=== PATIENT | male | born 1940 | race Caucasian/White ===

== ENCOUNTER 2016-07-24 02:09 | Inpatient (IN) | payer OTHER ==
[~2016-07-24] VITALS: Ht 167.6 cm; Wt 113.4 kg
[2016-07-24] VITALS (7 sets, daily range): BP systolic 117–151; BP diastolic 58–85
--- NOTE | ~2016-07-24 | EEG ---
[facility] [place] [address] ELECTROENCEPHALOGRAM Name: ANDERS RICHARDS Room #: 203-P [facility] IN M.R.#: [id number] Admission: 07/25/16 Attend Phys: Husam Gupta Discharge: 07/25/16 Date of : 39 Report #: [id number] THIS REPORT FOR: //name// CC: Carol Nuñez DATE OF SERVICE: 07/24/2016 The patient is a 75-year-old male with recurrent syncopal episodes. The patient has severe obstructive sleep apnea and restless legs syndrome. He only wears his BiPAP machine 3 hours at night. The patient has had episodes witnessed at the side of the bed where he falls asleep. DESCRIPTION: The awake record consists of symmetric low amplitude 8 cycles per second posterior dominant rhythm, which attenuates with eye opening. No focal abnormalities or epileptiform discharges are noted. EMG artifact is noted on the recording. No focal abnormalities or epileptiform discharges are noted. IMPRESSION: This is an abnormal adult awake record. No focal abnormalities or epileptiform discharges are noted. <ELECTRONICALLY SIGNED> By: Criss Palacios DO 07/27/16 1227 1751 [id number] Criss Palacios DO /nt
--- NOTE | ~2016-07-24 | EKG ---
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 : 1940 Requested By: Ramon Waldrop Order Number: [id number] MD: Armen Bullard Measurements Intervals [place] Rate: 95 P: 19 FL: 163 QRS: 76 QRSD: 140 T: 7 QT: 383 QTc: 482 Interpretive Statements Sinus rhythm Right bundle branch block Compared to ECG 07/18/2016 10:24:51 Atrial premature complex(es) no longer present Electronically Signed On 07-24-2016 11:54:49 CDT by Armen Bullard [email or web address] <ELECTRONICALLY SIGNED> By: Armen Bullard MD, [facility] 07/24/16 1154 0305 0305 Armen Bullard MD, [facility] /EPI
--- NOTE | ~2016-07-24 | H ---
[facility] [place] [address] [address] [place] [address] HISTORY AND PHYSICAL Name: ANDERS RICHARDS Room #: 203-P [facility] IN M.R.#: [id number] Admission: 07/25/16 Attend Phys: Husam Nuñez Discharge: 07/25/16 Date of : 39 Report #: [id number] THIS REPORT FOR: //name// CC: Carol Nuñez DATE OF SERVICE: 07/24/2016 ATTENDING PHYSICIAN: Husam Nuñez M.D. PRIMARY CARE PHYSICIAN: Carol Stern M.D. CHIEF COMPLAINT: Frequent falls and sleeping episodes. HISTORY OF PRESENT ILLNESS: The patient is a 75-year-old male who has been experiencing frequent falls in the last 10 days. He says they are occurring because he is falling asleep. They are occurring when he is standing or walking or driving or sitting. He has no warning before they happen. Multiple times, he has woken up on the floor, and he knows that he has hit his head and has caused multiple bruises because of the falls. He has been having difficulty sleeping over this time for him as well. Normally, he wears BiPAP for sleep apnea, but lately he has been taking it off frequently, and has not been having very restless sleep. He does not take anything to help him sleep either. He does not necessarily feel like he is tired throughout the day, but his says he will fall asleep in the middle of talking. It does not ever take much to arouse him, and he goes right back to talking. He does not have any history of seizures. He did have some medication adjustment recently with the restless leg medication, and he was switched to Neupro patch, but he says these sleeping episodes were occurring shortly before starting this new medication. He denies any associated chest pain or palpitations or dizziness. He denies any significant injuries from his falls. He has always been able to get back up and ambulate if he woke up on the ground. His has not actually witnessed any of his falls, but has seen many episodes when he is sitting and just falls asleep. He is doing this throughout this current assessment as well. PAST MEDICAL HISTORY: Obstructive sleep apnea, coronary artery disease, hypertension, hyperlipidemia, restless leg syndrome, diabetes, depression, GERD and anemia. PAST SURGICAL HISTORY: CABG x 5 vessels, uvulectomy, tonsillectomy, coronary angioplasty, left total hip replacement and bilateral cataracts. ALLERGIES: None. HOME MEDICATIONS: Libia 180 mg daily, clindamycin 300 mg q.6 hours, iron 65 mg b.i.d., Crestor 10 mg daily, fish oil 1000 mg daily, Gordo 5/40 [place] [address] HISTORY AND PHYSICAL Name: ANDERS RICHARDS PJ Room #: 203-P [facility] IN M.R.#: [id number] Admission: 07/25/16 Attend Phys: Husam Nuñez Discharge: 07/25/16 Date of : 39 Report #: [id number] and aspirin 81 mg daily, Mobic 7.5 mg daily, Effexor 150 mg daily, Neupro 1 patch daily, omeprazole 20 mg daily, prednisone 4 mg daily, metformin 1000 mg b.i.d., Januvia 100 mg daily, Detrol 2 mg daily, vitamin B12 daily, vitamin C daily, vitamin E daily and a multivitamin daily. SOCIAL HISTORY: The patient denies any tobacco use. He does drink alcohol casually but denies any daily use. He lives at home with his . He is able to ambulate with a walker. FAMILY HISTORY: His son does have epilepsy. REVIEW OF SYSTEMS: The patient has had some sores develop on his bilateral lower extremities and on his forehead. He was told they were Staph and he has been on, he says 2 different medications for it, but the only antibiotic I can see is clindamycin. He is also not aware why he is on prednisone, and he is not sure if he has been taking it or if this is a medication list error, as he says his sets up all his home medications, so he really does not know what he takes. He is scheduled to have a right hip replacement on August 02 in a few weeks. He says he has been to multiple physicians recently to have preop evaluations, but he is not sure exactly what has been done. All other 12-point review of systems was reviewed with the patient, otherwise negative unless stated in the HPI. PHYSICAL EXAMINATION: GENERAL: The patient is a sleepy male in no acute distress. VITAL SIGNS: Temperature is 36.4, heart rate 85, respirations 17, blood pressure is 144/71 and oxygen 98% on room air. HEENT: PERRLA. Sclerae are somewhat reddened. Oral mucosa is pink and moist. NECK: Supple, no JVD noted. CARDIOVASCULAR: Normal S1 and S2. No murmurs, rubs or gallops. RESPIRATORY: Breath sounds are clear bilaterally. He is diminished in both bases. Breathing is nonlabored. ABDOMEN: Obese, soft, nontender and nondistended with positive bowel sounds. VASCULAR: Bilateral lower extremity edema 1+. Pedal pulses are 2+. NEUROLOGIC: The patient is alert. He is able to tell me it is July and 2016, and he is in the hospital. He knew it was Monday. His speech is clear. He does doze off frequently during the assessment but arouses very easily shortly thereafter. It does appear that when this happens that he is sleeping. There was no shaking or seizure activity noted with it, and afterwards he remained fully alert. This happened at least 10 times during the assessment. SKIN: He does have multiple sores on bilateral shins as well as on the top of his head that are scabbed over. There is really no surrounding erythema. There are also multiple scattered bruises throughout. LABORATORY AND DIAGNOSTIC DATA: WBC is 7.2, hemoglobin 11.2 and platelets 272. INR 1.1. Sodium 138, potassium 4.8, BUN 22, creatinine 1.0 and glucose 146. [address] [address] HISTORY AND PHYSICAL Name: ANDERS RICHARDS [facility] Room #: [facility] IN .R.#: [id number] Admission: 07/25/16 Attend Phys: Husam Nuñez Discharge: 07/25/16 Date of : 39 Report #: [id number] of the head shows no acute intracranial process. There is a small air fluid level dependent to left maxillary sinus, which may represent subtle acute sinusitis. Hip x-ray shows no acute osseous abnormality. There is severe right hip osteoarthritis, and chest x-ray shows no acute cardiopulmonary process. ASSESSMENT AND PLAN: 1. Sudden sleep episodes versus syncope. The patient will need further neurologic and cardiac evaluation. It does not appear that he is having any arrhythmias during these witnessed events so far since arrival. We will continue to monitor on telemetry. They may be neurologic associated with narcolepsy; although, he has never had any prior diagnosis of this, and this would be rather late onset to have this occur. I am not sure if he is severely sleep deprived as well due to his sleep apnea and noncompliance with CPAP. He may need some medications for sleep Tonight. We will have Neurology evaluate for possible partial seizures. We will check an EEG. CT of the head is negative. Consult Neurology. 2. Multiple falls. See #1. X-rays were negative. 3. Obstructive sleep apnea. His will be bringing in his CPAP from home to continue. 4. Coronary artery disease. The patient is denying any chest pain. Troponins negative. EKG showed no ischemic changes. 5. Diabetes type 2. Blood sugar is stable. Continue home medications and add sliding scale insulin. 6. Severe restless legs syndrome. Neupro, which is his new medication may be contributing to the sleeping episodes and should be discontinued. 7. Hypertension. Blood pressure is stable, continue home meds. 8. Recent staph skin infection. Continue with clindamycin as at home. 9. Deep venous thrombosis prophylaxis, place sequential compression devices. We will continue to follow the patient closely throughout the hospitalization and make changes based on clinical status. <ELECTRONICALLY SIGNED> By: JORGE Bowman 07/26/16 0608 0734 0959 JORGE Bowman /nt
[~2016-07-24 02:09] MED LIST: ALLEGRA ALLERG180 MG PO; AMOXICILLIN 50500 M1 PO; APAP/CODEINE ELI5 M1 OR; ASA5UEC PO; AZOR 10-20 MG1 EACH PO; AZOR 5-40 MG T1 EACH PO; CELEBREX50 MG; CENTRUM SILVER1 EAC2 PO; CRESTOR10 MG PO; CYMBALTA20 MG; DETROL2 MG PO; FISH OIL 1,001000 M2 PO; GLUCOPHAGE500 MG PO; GLUCOSAMINE CH1 EAC2 PO; IRON325 PO; JANUVIA100 MG PO; MIRAPEX1 MG PO; MOBIC7.5 MG PO; OMEPRAZOLE 20 M20 M1 PO; VENLAFAXIN75 MG/1 T2 PO; VITAMIN B-12500 MCG PO; VITAMIN C1000 M1 PO; VITAMIN E400 UNIT PO; VYTORIN 10-101 EACH PO
[2016-07-24] MEDS ORDERED: CENTRUM SILVER1 EAC4 PO (02:55)
[2016-07-24] MEDS ORDERED: ALLEGRA ALLERG180 MG PO (02:55)
[2016-07-24] MEDS ORDERED: VITAMIN B-12500 MCG PO (02:56)
[2016-07-24 03:14] LABS: HEMATOCRIT 33.6 % (42.0-52.0); HEMOGLOBIN 11.2 gm/dL (14.0-18.0); MCH 29.4 pg (26.0-34.0); MCHC 33.3 g/dL (28.0-37.0); MCV 88.3 fL (80.0-100.0); RBC 3.81 mil/uL (4.50-6.00); RDW 17.6 % (10.5-14.5); WBC 7.2 thou/uL (4.0-11.0)
[2016-07-24 03:27] LABS: APTT 26.6 Seconds (24.5-32.8); INR 1.1; PROTIME 11.6 Seconds (9.3-11.4)
[2016-07-24 03:34] LABS: ANION GAP 9 mmol/L (7-16); BUN 22 mg/dL (7-18); CALCIUM 9.1 mg/dL (8.5-10.1); CHLORIDE 102 mmol/L (98-107); CO2 27 mmol/L (21-32); GLUCOSE 146 mg/dL (74-106); POTASSIUM 4.8 mmol/L (3.5-5.1); SODIUM 138 mmol/L (136-145); TROPONIN-I < 0.04 ng/mL (<0.04-0.07)
[2016-07-24] MEDS ORDERED: FISH OIL 1,001000 M2 PO (04:07)
[2016-07-24] MEDS ORDERED: VITAMIN C1000 M1 PO (04:09)
[2016-07-24] MEDS ORDERED: CRESTOR10 MG PO (04:09)
[2016-07-24] MEDS ORDERED: JANUVIA100 MG PO (04:10)
[2016-07-24] MEDS ORDERED: AZOR 5-40 MG T1 EACH PO (04:10)
[2016-07-24] MEDS ORDERED: MEDROL4 MG PO (04:11)
[2016-07-24] MEDS ORDERED: CLEOCIN HCL150 MG PO (04:11)
[2016-07-24] MEDS ORDERED: NEUPRO1 EAC1 TD (04:12)
[2016-07-24 10:01] LABS: TSH 1.498 uIU/mL (0.358-3.740)
[2016-07-24 13:18] LABS: ABG SAMPLE TYPE ARTERIAL; BE(vivo) 0.7 mmol/L (-2 to +3); HCO3 25.4 mmol/L (22.0-26.0); LACTATE 1.58 mmol/L (0.5-2.0); O2(CT) 15.6 mL/dL (15.0-23.0); O2Hb 92.8 % (92.0-98.0); PCO2 41.3 mmHg (35.0-45.0); PO2 72.8 mmHg (80.0-100.0); pH 7.407 (7.360-7.450); sO2 94.8 % (92.0-98.0); tCO2 26.7 mmol/L (24.0-30.0)
[2016-07-24 13:19] LABS: STICK SITE R.RADIAL
[2016-07-25] VITALS (7 sets, daily range): BP systolic 120–150; BP diastolic 55–84
[2016-07-25] MEDS ORDERED: REQUIP 0.25 M0.25 MG PO (11:49)
== END 2016-07-25 15:01 | disposition home health service (06) | DRG 312 ==
LOC: ER 02:09 → 2N 04:21 → EROBS 04:21 → 2N 05:25
PROVIDERS: Emergency Medicine; Hospitalist
DX: R55 Syncope and collapse (principal); T50.995A Adverse effect of other drugs, medicaments and biological substances, initial encounter; E78.5 Hyperlipidemia, unspecified; G25.81 Restless legs syndrome; E11.9 Type 2 diabetes mellitus without complications; K21.9 Gastro-esophageal reflux disease without esophagitis; F32.9 Major depressive disorder, single episode, unspecified; Z96.649 Presence of unspecified artificial hip joint; I11.0 Hypertensive heart disease with heart failure; I50.9 Heart failure, unspecified; G47.33 Obstructive sleep apnea (adult) (pediatric); I25.10 Atherosclerotic heart disease of native coronary artery without angina pectoris; Z79.82 Long term (current) use of aspirin; Z95.5 Presence of coronary angioplasty implant and graft; Z95.1 Presence of aortocoronary bypass graft; Z98.42 Cataract extraction status, left eye; Z98.41 Cataract extraction status, right eye; Z79.899 Other long term (current) drug therapy; Z91.19 Patient's noncompliance with other medical treatment and regimen; Z82.0 Family history of epilepsy and other diseases of the nervous system
CPT/HCPCS: 10081

== ENCOUNTER 2016-07-26 11:48 | Inpatient (IN) | payer OTHER ==
[~2016-07-26] VITALS: Ht 167.6 cm; Wt 106.1 kg
--- NOTE | ~2016-07-26 | EEG ---
[facility] [place] [address] ELECTROENCEPHALOGRAM Name: ANDERS RICHARDS Room #: 435-P [facility] IN M.R.#: [id number] Admission: 07/26/16 Attend Phys: Carlos Buckley MD Discharge: 07/29/16 Date of : 39 Report #: [id number] THIS REPORT FOR: //name// CC: Carol Buckley DATE OF SERVICE: 07/27/2016 This patient is being evaluated for altered mental status. The EEG was done by placing the electrodes by standard 10-20 system of electrode placement. Both referential and sequential montages were used for recording. Background activity in this patient's EEG is up to about 9 Hz and 15-20 microvolts. It is intermixed with theta range slowing on both sides. The patient went to sleep that is associated with bilateral slowing, vertex sharp waves and sleep spindles. Photic stimulation is unremarkable. Throughout the record, no active epileptiform activity was noticed. IMPRESSION: This patient's EEG demonstrates some intermixed theta range slowing on both sides. That is a nonspecific abnormality, which can occur with encephalopathy, effect of psychotropic medication, dementia, etc. Clinical correlation is recommended. Thank you very much for this referral. <ELECTRONICALLY SIGNED> By: Jeff Snider MD 07/31/16 0731 1729 1845 Jeff Snider MD /nt
--- NOTE | ~2016-07-26 | EKG ---
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[place] : 1940 Requested By: Sheila Rendon Order Number: [id number] MD: Armen Bullard Measurements Intervals [place] Rate: 85 P: 47 [place]: 168 QRS: 84 QRSD: 149 T: 2 QT: 411 QTc: 489 Interpretive Statements Sinus rhythm Incomplete Right bundle branch block Baseline wander in lead(s) V1 Compared to ECG 07/24/2016 03:05:39 No significant changes Electronically Signed On 07-28-2016 7:33:26 CDT by Armen Bullard [email or web address] <ELECTRONICALLY SIGNED> By: Armen Bullard MD, [facility] 07/28/16 0733 1204 1204 Armen Bullard MD, [facility] /EPI
--- NOTE | ~2016-07-26 | HC ---
[facility] [place] [address] CONSULTATION Name: ANDERS RICHARDS Room #: 435-P ADM IN M.R.#: [id number] Admission: 07/26/16 Attend Phys: Carlos Buckley MD Discharge: Date of : 39 Report #: [id number] THIS REPORT FOR: //name// CC: Carol Buckley HISTORY OF PRESENT ILLNESS: The patient is a 75-year-old white male who was recently admitted to [facility] having problems with frequent falls and falling asleep with standing, walking and talking to his , etc. He was noted to have both backwards falls as well as occasional forward falls. He has a history of obstructive sleep apnea. He was evaluated by neurology, diagnosed with restless legs syndrome, resumed on BiPAP, Neupro stopped, ropinirole increased. He was doing better and was discharged to home. He unfortunately was readmitted the next day. He had issues with falling asleep while standing up and had fallen 4 more times post-discharge. He was noted to have lethargy with frequent falls, restless legs syndrome, noncompliance with BiPAP. He has rhabdomyolysis and his statin was held due to the rhabdomyolysis. He has seen a sleep disorder specialist already in the past and will need to follow up with that doctor in the future. We are seeing him in rehabilitation medicine consultation. PAST MEDICAL HISTORY: Includes coronary artery bypass grafting, obstructive sleep apnea, he is to have a right total hip replacement on August 02, he has had cardiac catheterization times 4 with 2 angioplasties, history of hypertension, hyperlipidemia, left total hip replacement in 2005, restless legs syndrome, itg-fiofhzu-bqdxralda diabetes mellitus, EGD and colonoscopy, depression, controlled; and GERD. PAST SURGICAL HISTORY: As noted above. HABITS: No history of tobacco use. Alcohol on occasion. SOCIAL HISTORY: Lives in a house with his , 2 steps in. Used a walker, premorbid community ambulator with a walker. REVIEW OF SYSTEMS: No current complaints of chest pain, shortness of breath, or abdominal discomfort. He notes that he will use the BiPAP, but only for about an hour and half. He is trying gradually work up to using it for at least 6 hours a day. No focal extremity pain complaints. Does note overall generalized weakness. PHYSICAL EXAMINATION: GENERAL: A 75-year-old overweight white male, in no obvious distress. The patient is alert, pleasant, and oriented. VITAL SIGNS: Last recorded temperature 97.7, pulse 81, respirations 20, and blood pressure 150/66. HEENT: Appeared to be benign. [address] [address] CONSULTATION Name: ANDERS RICHARDS PJ Room #: [address] [place] [address] IN M.R.#: [id number] Admission: 07/26/16 Attend Phys: Carlos Buckley MD Discharge: Date of : 39 Report #: [id number] NEUROLOGIC: Cranial nerves grossly intact. Facies are symmetric. EXTREMITIES: Functional range of motion of both upper extremities with strength a grade 4- to 3+/5. DTRs are trace to 1. Lower extremities, he does have some distal edema 1-2+. No focal calf swelling. He has some thickening of the skin of the lower extremities and the edema, feels somewhat firm to touch and is not easily pitting. Tone otherwise appeared intact. He does have some excoriations over his childress anteriorly. He is standby assistance sit to stand. Gait was 6 steps contact guard assistance. ASSESSMENT: A 75-year-old white male with the following problem list: 1. Lethargy with frequent falls. 2. Rhabdomyolysis, holding statin. 3. Restless legs syndrome. 4. BiPAP noncompliance. 5. Significant right hip degenerative arthritis with plans for an upcoming total hip replacement. 6. Exogenous obesity. 7. Prior history of coronary artery bypass grafting. 8. History of frequent falls. 9. Diabetes mellitus. 10. Lower extremity edema. PLAN: We are assessing the patient regarding his rehabilitation needs. We will follow along with you. By: 1334 1821 Maciej Thakur MD /nt
[~2016-07-26 11:48] MED LIST changes: +CENTRUM SILVER1 EAC4 PO; +CLEOCIN HCL150 MG PO; +MEDROL4 MG PO; +NEUPRO1 EAC1 TD; +REQUIP 0.25 M0.25 MG PO
[2016-07-26 11:57] VITALS: BP 141/62
[2016-07-26 12:59] LABS: ABSOLUTE NEUTROPHILS 4.7 thou/uL (1.4-8.2); BASOPHILS 0.5 % (0.0-2.0); EOSINOPHILS 1.3 % (0.0-3.0); HEMATOCRIT 32.1 % (42.0-52.0); HEMOGLOBIN 10.8 gm/dL (14.0-18.0); LYMPHOCYTES 16.2 % (24.0-44.0); MCH 29.9 pg (26.0-34.0); MCHC 33.8 g/dL (28.0-37.0); MCV 88.5 fL (80.0-100.0); MONOCYTES 9.1 % (1.0-8.0); PLATELET COUNT 260 thou/uL (150-400); POLYS 72.9 % (36.0-66.0); RBC 3.62 mil/uL (4.50-6.00); RDW 17.1 % (10.5-14.5); WBC 6.5 thou/uL (4.0-11.0)
[2016-07-26 13:10] LABS: MANUAL DIFF NO
[2016-07-26 13:13] LABS: CALCIUM 8.4 mg/dL (8.5-10.1); CREATININE 1.1 mg/dL (0.7-1.3); POTASSIUM 4.1 mmol/L (3.5-5.1)
[2016-07-26 14:18] LABS: ABG SAMPLE TYPE ARTERIAL; BE(vivo) -1.6 mmol/L (-2 to +3); HCO3 22.3 mmol/L (22.0-26.0); LACTATE 1.62 mmol/L (0.5-2.0); O2(CT) 15.2 mL/dL (15.0-23.0); O2Hb 95.9 % (92.0-98.0); PCO2 34.5 mmHg (35.0-45.0); PO2 90.7 mmHg (80.0-100.0); STICK SITE R.BRACHIAL; pH 7.428 (7.360-7.450); sO2 97.2 % (92.0-98.0); tCO2 23.3 mmol/L (24.0-30.0)
[2016-07-26 15:00] VITALS: BP 137/70
[2016-07-26 19:24] VITALS: BP 141/62
[2016-07-26 19:25] LABS: URINE BILIRUBIN NEGATIVE (Negative); URINE BLOOD NEGATIVE (Negative); URINE COLOR YELLOW; URINE GLUCOSE-RANDOM* NEGATIVE (Negative); URINE KETONES TRACE (Negative); URINE LEUKOCYTES-REFLEX NEGATIVE (Negative); URINE PROTEIN (DIPSTICK) NEGATIVE (Negative); URINE SPECIFIC GRAVITY >= 1.030 (1.003-1.035); URINE UROBILINOGEN 0.2 E.U./dl (0.2-1.0)
[2016-07-26 19:42] LABS: AMP/METHAMP Negative (Negative); BARBITURATES Negative (Negative); BENZODIAZEPINES Negative (Negative); COCAINE Negative (Negative); METHADONE Negative (Negative); OPIATES POSITIVE (Negative); PCP Negative (Negative); THC Negative (Negative)
[2016-07-27 03:25] VITALS: BP 124/59
[2016-07-27 05:58] LABS: ALBUMIN 3.4 g/dL (3.4-5.0); CALCIUM 8.4 mg/dL (8.5-10.1); CREATININE 0.8 mg/dL (0.7-1.3); MAGNESIUM 1.6 mg/dL (1.8-2.4); POTASSIUM 4.3 mmol/L (3.5-5.1); TOTAL BILIRUBIN 0.9 mg/dL (<0.1-1.0); TOTAL PROTEIN 6.6 g/dL (6.4-8.2)
[2016-07-27 08:00] VITALS: BP 150/66; BP 156/66
[2016-07-27 16:25] VITALS: BP 156/68
[2016-07-27 19:45] VITALS: BP 165/60
[2016-07-28 04:10] VITALS: BP 159/72
[2016-07-28 05:34] LABS: HEMATOCRIT 34.2 % (42.0-52.0); HEMOGLOBIN 11.3 gm/dL (14.0-18.0); MCH 29.7 pg (26.0-34.0); MCV 90.1 fL (80.0-100.0); RBC 3.79 mil/uL (4.50-6.00); RDW 17.6 % (10.5-14.5)
[2016-07-28 06:07] LABS: CALCIUM 7.8 mg/dL (8.5-10.1); CREATININE 0.6 mg/dL (0.7-1.3); POTASSIUM 4.5 mmol/L (3.5-5.1)
[2016-07-28 08:12] VITALS: BP 149/61
[2016-07-28 11:47] VITALS: BP 149/72
[2016-07-28 16:15] VITALS: BP 147/69
[2016-07-28 19:08] VITALS: BP 149/65
[2016-07-29 04:10] VITALS: BP 168/78
[2016-07-29 07:56] VITALS: BP 156/70
[2016-07-29] MEDS ORDERED: CYCLOBENZAPRINE5 MG PO (13:57)
[2016-07-29] MEDS ORDERED: REQUIP 1 MG TABL1 M1 PO (13:58)
[2016-07-29] MEDS ORDERED: REQUIP2 MG PO (13:58)
== END 2016-07-29 16:03 | DRG 602 ==
LOC: ER 11:48 → EROBS 13:59 → 4S 13:59
PROVIDERS: Emergency Medicine; Hospitalist; Nurse Practitioner
DX: L03.119 Cellulitis of unspecified part of limb (principal); G93.41 Metabolic encephalopathy; M62.82 Rhabdomyolysis; E86.0 Dehydration; B95.8 Unspecified staphylococcus as the cause of diseases classified elsewhere; E78.5 Hyperlipidemia, unspecified; Z96.642 Presence of left artificial hip joint; G25.81 Restless legs syndrome; E11.9 Type 2 diabetes mellitus without complications; K21.9 Gastro-esophageal reflux disease without esophagitis; F32.9 Major depressive disorder, single episode, unspecified; I25.10 Atherosclerotic heart disease of native coronary artery without angina pectoris; G47.33 Obstructive sleep apnea (adult) (pediatric); I11.9 Hypertensive heart disease without heart failure; R53.83 Other fatigue; R29.6 Repeated falls; E66.09 Other obesity due to excess calories; E83.42 Hypomagnesemia; R33.9 Retention of urine, unspecified; G47.00 Insomnia, unspecified; Z79.82 Long term (current) use of aspirin; Z95.5 Presence of coronary angioplasty implant and graft; Z98.42 Cataract extraction status, left eye; Z98.41 Cataract extraction status, right eye; Z95.1 Presence of aortocoronary bypass graft; Z68.37 Body mass index [BMI] 37.0-37.9, adult; Z79.899 Other long term (current) drug therapy; Z82.0 Family history of epilepsy and other diseases of the nervous system; Z91.19 Patient's noncompliance with other medical treatment and regimen
CPT/HCPCS: 10100

== ENCOUNTER 2016-10-02 19:47 | Emergency (ER) | payer OTHER ==
[~2016-10-02] VITALS: Ht 170.2 cm; Wt 102.1 kg
[~2016-10-02 19:47] MED LIST changes: +CYCLOBENZAPRINE5 MG PO; +REQUIP 1 MG TABL1 M1 PO; +REQUIP2 MG PO
[2016-10-02 21:30] VITALS: BP 135/71
== END 2016-10-02 21:19 | disposition home or self-care (01) ==
LOC: ER 19:47
DX: S00.01XA Abrasion of scalp, initial encounter (principal); G47.30 Sleep apnea, unspecified; I10 Essential (primary) hypertension; E78.5 Hyperlipidemia, unspecified; E11.9 Type 2 diabetes mellitus without complications; G25.81 Restless legs syndrome; F32.9 Major depressive disorder, single episode, unspecified; K21.9 Gastro-esophageal reflux disease without esophagitis; F10.99 Alcohol use, unspecified with unspecified alcohol-induced disorder; Z90.89 Acquired absence of other organs; Z95.5 Presence of coronary angioplasty implant and graft; Z96.642 Presence of left artificial hip joint; Z86.2 Personal history of diseases of the blood and blood-forming organs and certain disorders involving the immune mechanism; W01.198A Fall on same level from slipping, tripping and stumbling with subsequent striking against other object, initial encounter; Y93.01 Activity, walking, marching and hiking; Y92.89 Other specified places as the place of occurrence of the external cause; Y99.8 Other external cause status

== ENCOUNTER → 2016-10-26 | Outpatient (CLI) | payer OTHER ==
[~2016-10-26] VITALS: Ht 167.6 cm; Wt 101.3 kg
[~2016-10-26] MED LIST changes: +HYDROCODONE-AP1 EAC6 PO; +IBUPROFEN 600600 M1 PO; +NEURONTIN 300300 M1 PO; +NORCO 5-325 TA1 EACH PO; +XANAX 0.5 MG0.5 M1 PO
[2016-10-26 11:10] VITALS: BP 140/66
== END | disposition home or self-care (01) ==
LOC: PAIN 07:25
DX: M47.22 Other spondylosis with radiculopathy, cervical region (principal); G25.81 Restless legs syndrome; Z88.8 Allergy status to other drugs, medicaments and biological substances; M54.16 Radiculopathy, lumbar region; M47.27 Other spondylosis with radiculopathy, lumbosacral region; M51.36 Other intervertebral disc degeneration, lumbar region; M48.02 Spinal stenosis, cervical region; G89.29 Other chronic pain; E11.9 Type 2 diabetes mellitus without complications; Z95.1 Presence of aortocoronary bypass graft; Z98.890 Other specified postprocedural states; F32.9 Major depressive disorder, single episode, unspecified

== ENCOUNTER → 2016-10-27 | Outpatient (CLI) | payer OTHER | LOC: MRI 09:27 | DX: M54.16 Radiculopathy, lumbar region (principal) ==

== ENCOUNTER → 2016-11-02 | Outpatient (CLI) | payer OTHER ==
[~2016-11-02] VITALS: Ht 170.2 cm; Wt 101.2 kg
--- NOTE | ~2016-11-02 | P ---
[facility] [place] [place] [address] PROCEDURE REPORT Name: ANDERS RICHARDS II [id number] Admission: 11/02/16 Attend Phys: Raghavendra Brush DO Discharge: Date of : 39 Report #: [id number] THIS REPORT FOR: //name// CC: Carol Brush DATE OF SERVICE: 11/02/2016 PROCEDURE NOTE DESCRIPTION OF PROCEDURE: L2-L3 right paramedian epidural steroid injection under fluoroscopic guidance. This is the first procedure of the first series that the patient is undergoing. After obtaining written consent, the patient was taken back to the fluoroscopy suite, placed in a prone position with pillow under the abdomen to decrease lumbar lordosis. The skin overlying the lumbosacral area was then prepped and draped in aseptic fashion. The L2-L3 vertebral interspace was then identified by AP fluoroscopy. The skin and subcutaneous tissue overlying the target site of injection was anesthetized with 3 mL 1% lidocaine. A(n) 20-guage 3-1/2-inch Tuohy needle was then advanced under fluoroscopic guidance towards the epidural space using a right paramedian approach. The epidural space was identified using loss of resistance to air technique. After negative aspiration for heme or cerebrospinal fluid, a total of 1 mL of Omnipaque was injected. A lumbar epidurogram was confirmed using both AP and lateral fluoroscopy. After negative aspiration for heme or cerebrospinal fluid, 5 mL of a solution containing 2 mL 40 mg/mL 80 mg total triamcinolone, 3 mL of lidocaine 1% was injected in increments. Contrast spread was noted posterior epidural space. The needle was then retracted approximately half way and needle tract flushed with 1 mL of 1% lidocaine. Needle was then removed. There were no apparent sensory or motor deficits in the lower extremity following the procedure. A sterile bandage was placed over the injection site. The heart rate, pulse, oximetry and blood pressure were continuously monitored after the procedure. There were no apparent complications. The patient tolerated the procedure well and was carefully escorted to the recovery room in stable condition. There were no apparent complications. After meeting discharge criteria, the patient was then discharged home. By: 0721 1016 Raghavendra Brush DO /eh
--- NOTE | ~2016-11-02 | HPC ---
[facility] [place] [address] PAIN MANAGEMENT CONSULTATION Name: ANDERS RICHARDS Jacquelyn SAAVEDRA Room #: REG FADIA GonzalezSonuRebekaSonu#: [id number] Admission: 11/02/16 Attend Phys: Raghavendra Brush DO Discharge: Date of : 39 Report #: [id number] THIS REPORT FOR: //name// CC: Carol Brush DATE OF SERVICE: 11/02/2016 REFERRING PHYSICIAN: Carol Stern M.D. CHIEF COMPLAINT: Low back pain, right lower extremity pain and paresthesias. HISTORY OF PRESENT ILLNESS: As you know, the patient is a 75-year-old male who was originally referred to our service with concern of neck pain. He was seen in consultation where we discussed treatment options for his cervical spondylosis and his lumbar radiculopathy on 10/26/2016. After a discussion of treatment, the patient chose to begin with conservative medical therapy. He returns today in followup visit stating that the lumbar pain is intense enough that he wishes to undergo epidural injection. He indicates his pain in the low back and right lower extremity as sharp, numbness and tingling, places current pain score 7/10, states pain is exacerbated with standing and walking, hot showers appear to improve pain. He has returned today in followup visit requesting a lumbar epidural injection under fluoroscopic guidance, in hopes of improving his lumbar radicular symptoms. ALLERGIES: CONNOR INHIBITORS. CURRENT MEDICATIONS: See the extensive list in chart. SOCIAL HISTORY: The patient denies tobacco, alcohol, IV or illicit drug use. He is accompanied by his significant other today. IMAGING: No new imaging available. PHYSICAL EXAMINATION: VITAL SIGNS: Blood pressure 142/68, pulse 85, respiratory rate 16, unlabored. The patient is 98% on room air, height 5 feet 7 inches tall, weight 223 pounds, BMI calculated 34.9. GENERAL: Well developed, well nourished, well-hydrated 75-year-old male appearing his stated age. He is placing current pain score 7/10. HEENT: Normocephalic, atraumatic. Pupils equal, round, reactive to light. Extraocular muscles are intact. Sclerae are nonicteric, without injection. EXTREMITIES: Show no clubbing, no cyanosis, no edema. MUSCULOSKELETAL: Seated straight leg raising negative. Supine straight leg raising positive right. Olivier's test negative. Modified Gaenslen's positive [address] [address] PAIN MANAGEMENT CONSULTATION Name: ANDERS RICHARDS Jacquelyn [id number] Admission: 11/02/16 Attend Phys: Raghavendra Brush DO Discharge: Date of : 39 Report #: [id number] for axial low back pain. Ankle clonus negative. Babinski is negative. Gait is antalgic, favoring right lower extremity over left. ASSESSMENT: 1. Symptomatic lumbar radiculopathy. 2. Displacement of lumbar intervertebral disk with radiculopathy. 3. Lumbosacral spondylosis with radiculopathy. 4. 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 5. Degeneration of the lumbar spine. 6. Chronic intractable pain. PLAN: 1. The patient returns today in followup visit with increasing pain along what appears to be the L2-L3 distribution on the right. The patient and I have discussed the possibility of undergoing epidural injection to address this ongoing and intense pain. The patient has been advised the risks and benefits of this procedure. These risks include, but are not necessarily limited to bleeding, bruising, infection, worsening pain, no relief of pain, also risk of temporary or permanent muscle weakness, temporary or permanent nerve damage, possible paralysis and . The patient states understood and wished to proceed. 2. No medication changes were made at today's visit. The patient will continue current medical therapy as previously prescribed. 3. The patient will return to our clinic in approximately 2 weeks. At that time, review the efficacy of today's epidural injection and determine if a repeat injection might be necessary. By: 0721 1015 Raghavendra Brush DO /eh
[2016-11-02 10:26] VITALS: BP 142/68
== END | disposition home or self-care (01) ==
LOC: PAIN 08:23
DX: M51.16 Intervertebral disc disorders with radiculopathy, lumbar region (principal); G89.29 Other chronic pain; M47.27 Other spondylosis with radiculopathy, lumbosacral region; M12.88 Other specific arthropathies, not elsewhere classified, other specified site; Z88.8 Allergy status to other drugs, medicaments and biological substances; Z79.899 Other long term (current) drug therapy; Z79.82 Long term (current) use of aspirin; Z98.890 Other specified postprocedural states

== ENCOUNTER → 2016-11-23 | Outpatient (CLI) | payer OTHER ==
[~2016-11-23] VITALS: Ht 170.2 cm; Wt 99.8 kg
--- NOTE | ~2016-11-23 | HPC ---
[facility] [place] [address] PAIN MANAGEMENT CONSULTATION Name: RICHARDSANDERS II Room #: REG [facility] Treasure#: [id number] Admission: 11/23/16 Attend Phys: Raghavendra Brush DO Discharge: Date of : 39 Report #: [id number] THIS REPORT FOR: //name// CC: HENRY Brush DATE OF SERVICE: 11/23/2016 DATE OF SERVICE: 11/23/2016 CHIEF COMPLAINT: Low back pain, right lower extremity pain and paresthesias. HISTORY OF PRESENT ILLNESS: As you know, the patient is a 75-year-old male, who was originally referred to our service for chronic neck pain. During consultation, he was complaining more of low back pain for which he wished to address. He ultimately has undergone epidural injection under fluoroscopic guidance to address lumbar radicular symptoms. He underwent this procedure on 11/11/2016. He returns today in followup visit stating he received no improvement in symptoms despite his radicular distribution. He indicates pain remains at a constant, sharp and numbness in its presentation. He places pain score 5/10. States standing, movement of any kind exacerbates symptoms. Nothing appears to improve pain. He returns today in followup visit stating he has been undergoing physical therapy and rehabilitation at home after being undergoing formalized physical therapy. Despite these conservative treatment options and/or more aggressive epidurals, his lumbar radicular symptoms have not improved. He returns to discuss options. ALLERGIES: CONNOR INHIBITORS. CURRENT MEDICATIONS: Gabapentin, hydrocodone, ropinirole, cyclobenzaprine, Januvia, amlodipine, , ascorbic acid, omega-3 fish oil, multivitamins, fexofenadine, meloxicam, Detrol, venlafaxine, vitamin E, aspirin, ferrous sulfate, omeprazole, metformin. SOCIAL HISTORY: The patient denies tobacco, alcohol, IV or illicit drug use. He is accompanied by his significant other who is providing the vast majority of the history. IMAGING: No new imaging available. PHYSICAL EXAMINATION: VITAL SIGNS: Blood pressure 117/70, pulse 71, respiratory rate 18, unlabored. The patient is 98% on room air, height 5 feet 7 inches tall, weight 220 pounds, BMI calculated 34.4. GENERAL: Well-developed, well-nourished, well-hydrated 75-year-old male [address] [address] PAIN MANAGEMENT CONSULTATION Name: RICHARDSANDERS Room #: REG [facility]#: [id number] Admission: 11/23/16 Attend Phys: Raghavendra Brush DO Discharge: Date of : 39 Report #: [id number] appearing stated age. He is placing pain score around 5/10. HEENT: Normocephalic, atraumatic. Pupils equal, round, reactive to light. Extraocular muscles are intact. Sclerae nonicteric, without injection. EXTREMITIES: Show no clubbing, no cyanosis, no edema. MUSCULOSKELETAL: Muscle bulk and tone equal and symmetrical in lower extremities, appears to be intact to light touch from L1 through S2 dermatomes. Deep tendon reflexes are diminished, but symmetrical at patella and Achilles. Ankle clonus negative. Babinski is negative. Gait is antalgic favoring right lower extremity over left. Seated straight leg raising negative. Supine straight leg raising positive right. Modified Gaenslen's positive for axial low back pain. ASSESSMENT: 1. Symptomatic lumbar radiculopathy. 2. Displacement of lumbar intervertebral disk with radiculopathy. 3. Lumbosacral spondylosis with radiculopathy. 4. Severe facet arthropathy of the lower lumbar spine. 5. Degeneration of the lumbar spine. 6. Chronic intractable pain. PLAN: 1. The patient returns today in followup visit indicating no improvement in symptoms with the epidural injection provided at our last visit. Unfortunately, the patient's symptoms continue unabated. I would not recommend in the series of epidural injections, given the fact that we received zero benefit even post-procedurally. Recommend the patient move forward with surgical consultation and possible surgical decompression. Unfortunately, the patient has failed conservative treatment. He has tried physical therapy, stretching exercises, he continues to do rehabilitation exercises at home. He has been unable to tolerate medications to date. We will make adjustments in them today. He has not responded well to epidural injections and surgical options may remain his only choice of treatment. He will be referred to Neurosurgery at this time. 2. The patient was provided referral to Neurosurgery for evaluation. The patient has requested this referral to be provided today. Whether he is a candidate for Neurosurgery is up to the patient and his surgeon though given the fact he has not noted improvement in symptoms with conservative treatment, this may be his only option. We have provided this referral to the patient today. He may follow up at his earliest convenience. 3. We will increase the patient's gabapentin with plans to escalate to 3 tabs 3 times a day. He was given the titration of the medication. Currently, he is taking 1 tab in the morning, 1 tab at noon and 2 tabs at night. He is to increase to 1 tab in the morning, 1 tab at noon and 3 tabs at night for 3 nights, then increase to 2 tabs in morning, 2 tabs at noon, 3 tabs at night for 3 nights, then 3 tabs 3 times a day. He was given a prescription of gabapentin 300 mg tablets #270, to reach the 900 mg 3 times a day dose. This is much more [facility] [address] [place] [address] PAIN MANAGEMENT CONSULTATION Name: MAURICEANDERS Room #: [facility] Anna.#: [id number] Admission: 11/23/16 Attend Phys: Raghavendra Brush DO Discharge: Date of : 39 Report #: [id number] effective level of gabapentin for neuropathic pain. He was advised anytime during the titration if his pain does improve, he is to remain at that dose, no further escalation. We have given this prescription with no refills. 4. The patient will return to our clinic on an as needed basis. His referrals have been sent for Neurosurgery consultation and evaluation. He can receive refills of his gabapentin through his primary care team or if necessary through our services. By: [id number] Raghavendra Brush DO /nt
[2016-11-23 09:47] VITALS: BP 117/70
== END ==
LOC: PAIN 07:04
DX: M51.16 Intervertebral disc disorders with radiculopathy, lumbar region (principal); M47.27 Other spondylosis with radiculopathy, lumbosacral region; M79.604 Pain in right leg; R20.9 Unspecified disturbances of skin sensation

== ENCOUNTER → 2017-10-30 | Outpatient (CLI) | payer OTHER, MEDICARE | LOC: MRI 09:43 | DX: M19.012 Primary osteoarthritis, left shoulder (principal); M25.412 Effusion, left shoulder; M75.82 Other shoulder lesions, left shoulder ==

== ENCOUNTER → 2019-05-27 | Outpatient (CLI) | payer OTHER, MEDICARE | LOC: SJCVC 13:43 | DX: I45.10 Unspecified right bundle-branch block (principal); R94.31 Abnormal electrocardiogram [ECG] [EKG]; I25.810 Atherosclerosis of coronary artery bypass graft(s) without angina pectoris; E11.21 Type 2 diabetes mellitus with diabetic nephropathy; I48.0 Paroxysmal atrial fibrillation; I10 Essential (primary) hypertension; E78.00 Pure hypercholesterolemia, unspecified; Z95.1 Presence of aortocoronary bypass graft; Z79.899 Other long term (current) drug therapy ==

== ENCOUNTER → 2020-01-13 | Outpatient (CLI) | payer OTHER, MEDICARE | LOC: SJCVCIMAG 07:35 | PROVIDERS: ATTEND Internal Medicine Cardiovascular Disease | DX: I65.23 Occlusion and stenosis of bilateral carotid arteries (principal); I25.10 Atherosclerotic heart disease of native coronary artery without angina pectoris; R94.31 Abnormal electrocardiogram [ECG] [EKG]; I45.2 Bifascicular block; I73.9 Peripheral vascular disease, unspecified; I10 Essential (primary) hypertension; E78.00 Pure hypercholesterolemia, unspecified; I45.10 Unspecified right bundle-branch block; I87.2 Venous insufficiency (chronic) (peripheral); G47.33 Obstructive sleep apnea (adult) (pediatric); Z95.1 Presence of aortocoronary bypass graft; Z79.899 Other long term (current) drug therapy ==

== ENCOUNTER → 2020-02-05 | Outpatient (CLI) | payer OTHER, MEDICARE ==
[~2020-02-05] MED LIST changes: +AMLODIPINE-OLM1 EAC3 PO; +ZETIA10 MG PO
== END ==
LOC: SJCVCIMAG 07:26
PROVIDERS: ATTEND Internal Medicine Cardiovascular Disease
DX: I08.8 Other rheumatic multiple valve diseases (principal); I45.10 Unspecified right bundle-branch block; I49.1 Atrial premature depolarization; I25.10 Atherosclerotic heart disease of native coronary artery without angina pectoris; Z95.1 Presence of aortocoronary bypass graft; Z79.899 Other long term (current) drug therapy

== ENCOUNTER → 2020-02-12 | Outpatient (CLI) | payer OTHER, MEDICARE ==
[~2020-02-12] VITALS: Ht 170.2 cm; Wt 99.8 kg
[2020-02-12 07:10] VITALS: BP 122/63
[2020-02-12 07:41] LABS: HEMATOCRIT 34.8 % (42.0-52.0); HEMOGLOBIN 11.5 gm/dL (14.0-18.0); MCH 30.4 pg (26.0-34.0); MCHC 32.9 g/dL (28.0-37.0); MCV 92.2 fL (80.0-100.0); RBC 3.78 mil/uL (4.50-6.00); RDW 16.5 % (10.5-14.5); WBC 5.5 thou/uL (4.0-11.0)
[2020-02-12 07:53] LABS: CREATININE 1.1 mg/dL (0.7-1.3); POTASSIUM 3.5 mmol/L (3.5-5.1)
--- NOTE | 2020-02-13 11:51 | CATHLAB ---
[facility] [place] [address] INVASIVE PROCEDURE REPORT Name: ANDERS RICHARDS Jacquelyn SAAVEDRA Room #: REG FADIA CastilloSonu#: [id number] Admission: 02/12/20 Attend Phys: Chon Blankenship MD, Discharge: Date of : 39 Report #: [id number] THIS REPORT FOR: cc: Carol Stern MD, Carrie W. MD Mancuso, Gerald M. MD [facility] ~ APPROVED REPORT Study performed: 02/12/2020 07:43:37 Patient Details The patient is a 79 year-old male Event Personnel Chon Blankenship Polisher Numeral, Nasreen Watson RN RN, Patricia Velázquez, Genaro Pat RTR Monitor Procedures Performed Art Access - R femoral artery* 17213 Initial Mod Sed Same Phys/QHP Gr5y 047619 72732 Mod Sed Same Phys/QHP Ea 284176 Left Heart Cath Coronaries, Bypass Grafts 8198565 CCORCABG Abdominal Aortography 454835 Hemostasis w/ Mynx Indication Pre-op clearance Previous Procedures/Diagnoses Previous CABG Procedure Narrative The Right Groin^ was infiltrated with 1% Lidocaine subcutaneous anesthesia. A PINNACLE 6FR Sheath #[id number] sheath was inserted into the RFA^. Coronary angiography was performed using coronary diagnostic catheters. The right coronary system was accessed and visualized with a JR4 catheter. The left coronary system was accessed and visualized with a JL4 catheter. The left ventricle was accessed and visualized with a PIGTAIL catheter. Left ventriculogram was performed in 30 degree projection. An aortogram of the abdominal aorta was performed. Closure device was deployed with a 6 Fr [employer]. Hemostasis was obtained with manual pressure following sheath removal without any complications. The patient tolerated the procedure well and there were no complications associated with the procedure. There was no hematoma. [facility] [address] [place] [address] INVASIVE PROCEDURE REPORT Name: ANDERS RICHARDS Room #: [facility] Treasure#: [id number] Admission: 02/12/20 Attend Phys: Chon Blankenship, Discharge: Date of : 39 Report #: [id number] Intraoperative Conscious Sedation Sedation start time: 850 Case end Time: 939 Fentanyl 75 mcg Versed 1 mg Fluoro Time: 11.60 minutes Dose: DAP 10843.80 cGycm2 1986 mGy Contrast Type and Amount: Omnipaque 170 ml Hemodynamics The aortic pressure is 149/63 mmHg with a mean of 99 mmHg. The left ventricular pressure is 136/4 mmHg with a mean of mmHg. The left ventricular end diastolic pressure is 22 mmHg. Conclusion 1. Normal left jugular size and systolic function EF 55% #2 abdominal aortogram mild tortuosity and plaquing no significant aneurysm or occlusive disease. #3 left main moderately disease high-grade disease distally giving rise to a ramus branch which is small and an occluded LAD and circumflex. #4 the AYALA to the LAD is intact with mild irregularities. #5 large SVG to the PDA DIVINA system is patent with diffuse irregularities in the dominant PDA. Proximal graft has 30 to 40% irregularity. #6 an SVG or possible radial graft with a jump to OM1 and OM 3. Brisk flow is noted throughout no high-grade disease. #7 the [place] right coronary artery has moderate to severe diffuse disease throughout it is filled via the vein graft noted above. Recommendations and plan: Continue aggressive risk factor modification. No indication for coronary intervention. The nuclear abnormality are consistent with the anatomic findings. Will follow discharge protocol. <ELECTRONICALLY SIGNED> By: Chon Blankenship MD, FACC 02/13/20 1151 115 115 hCon Blankenship MD, FACC /INF
== END | disposition home or self-care (01) ==
LOC: CATH 06:38
PROVIDERS: ATTEND Internal Medicine Cardiovascular Disease
DX: I25.810 Atherosclerosis of coronary artery bypass graft(s) without angina pectoris (principal); I70.0 Atherosclerosis of aorta; I10 Essential (primary) hypertension; E78.5 Hyperlipidemia, unspecified; I48.91 Unspecified atrial fibrillation; E11.9 Type 2 diabetes mellitus without complications; I73.9 Peripheral vascular disease, unspecified; E66.9 Obesity, unspecified; Z95.1 Presence of aortocoronary bypass graft; Z98.890 Other specified postprocedural states; Z79.899 Other long term (current) drug therapy; Z79.01 Long term (current) use of anticoagulants; Z96.642 Presence of left artificial hip joint; Z82.49 Family history of ischemic heart disease and other diseases of the circulatory system

== ENCOUNTER → 2021-05-10 | Outpatient (CLI) | payer OTHER, MEDICARE | LOC: SJCVCIMAG 14:14 → SJCVC 14:14 | PROVIDERS: ATTEND Internal Medicine Cardiovascular Disease | DX: R94.31 Abnormal electrocardiogram [ECG] [EKG] (principal); I45.2 Bifascicular block; I65.23 Occlusion and stenosis of bilateral carotid arteries; I25.10 Atherosclerotic heart disease of native coronary artery without angina pectoris; I10 Essential (primary) hypertension; E78.00 Pure hypercholesterolemia, unspecified; I87.2 Venous insufficiency (chronic) (peripheral); I45.10 Unspecified right bundle-branch block; E11.9 Type 2 diabetes mellitus without complications; Z95.1 Presence of aortocoronary bypass graft; Z72.89 Other problems related to lifestyle; Z88.8 Allergy status to other drugs, medicaments and biological substances; Z79.82 Long term (current) use of aspirin; Z79.84 Long term (current) use of oral hypoglycemic drugs; Z79.899 Other long term (current) drug therapy; Z82.49 Family history of ischemic heart disease and other diseases of the circulatory system ==

== ENCOUNTER 2021-05-30 21:04 | Inpatient (IN) | payer OTHER, MEDICARE ==
[~2021-05-30] VITALS: Ht 170.2 cm; Wt 94.3 kg
--- NOTE | ~2021-05-30 | EMS ---
[address] [address] EMS Patient Care Report Name: ANDERS RICHARDS II Room #: 170-9 ADM IN M.R.#: [id number] Admission: 05/30/21 Attend Phys: Carlos Buckley MD Discharge: Date of : 39 Report #: [id number] THIS REPORT FOR: //name// Report Transmitted: 05/31/2021 06:54 EMS Care Summary [facility] MED-ACT Incident [id number] @ 05/30/2021 20:30 Incident Location [facility] [place] [address] Patient ANDERS RICHARDS Male, 80 Years 1940 Patient Address [address] [place] [address] Patient History Diabetes,Hypertension (HTN),Hyperlipidemia,Cardiac - Stent,Coronary Artery Bypass Graft (CABG), Patient Allergies No known allergies, Patient Medications Venlafaxine, Furosemide, Metformin, Amlodipine, Potassium, Rosuvastatin, Chief Complaint Pt. was slurring his speech. Disposition Transported No Lights/[place] Dispatch Reason Stroke/CVA Transported To [facility] Narrative Arrived to find a 80 yr old alert male patient lying on the floor on the right side with two small dogs circling him. According to the patient recently over an unknown period of time he has been developing a headache and dizziness after [address] [address] EMS Patient Care Report Name: ANDERS RICHARDS II Room #: 1709 [facility] IN [facility]#: [id number] Admission: 05/30/21 Attend Phys: Carlos Buckley MD Discharge: Date of : 39 Report #: [id number] walking for short periods. This afternoon around 1400 the patient was having some speech slurring. It is unknown if it resolved or if it persisted until EMS was summoned. Patient is a type II diabetic and did not eat dinner tonight. Patient reports that his mouth is dry. Patient uses a walker and he normally has issues walking. He indicates it is normal for him to drag his right foot. It is unknown when the patient last checked his blood sugar. His reports they probably do not check his blood sugar like they normally should. The patient's states the patient's shirt is wet because he spilled his urinal on himself. Patient denies having a headache, dizziness, visual changes, nausea/vomiting/diarrhea, fever, cough, or chills upon our arrival. A: See the assessment tab. We stood the patient up and moved him out of his room due to the dogs, one of which was protecting him. Physical exam. Vital signs. BG. Patient stood with assistance and sat on the cot. Moved to unit. Patient was administered 24 grams of oral glucose. En route to [facility]. Vital signs and ECG were monitored during transport. Patient initially had a hard time correctly repeated a sentence but after the oral glucose he stated he felt better and was able to correctly repeat a sentence. 12-lead ECG. Saline Lock. BG rechecked and improved. We contacted [facility] on the [employer] radio. Patient rested comfortably on the cot during transport and developed no new complaints prior to arrival at [facility]. Patient care was transferred to an ED RN in room 9 at [facility]. Patient was able to self transfer from the cot to the hospital bed. Patient requested ambulance transport to [facility]. Initial Vitals @20:48P: 74,R: 16,BP: 149/66,Pain: 0/10,GCS: 15,SpO2: 95,Revised Trauma: 12,FL Suspected: false @20:52P: 75,R: 16,BP: 105/50,Pain: 0/10,GCS: 15,Glucose: 96,SpO2: 100,Revised Trauma: 12,FL Suspected: false @20:37P: 95,R: 16,BP: 105/70,Pain: 0/10,GCS: 15,Temp: 97.6F,Glucose: 70,SpO2: 91,Revised Trauma: 12, @20:45P: 75,R: 16,BP: 151/62,Pain: 0/10,GCS: 15,Temp: 97.6F,SpO2: 95,Revised Trauma: 12,FL Suspected: false Impression Diabetic Hypoglycemia Procedures @20:52 12-Lead ECG Response: UnchangedSucceeded [facility] [address] [place] [address] EMS Patient Care Report Name: MAURICEANDERS B Room #: 170-9 ADM IN M.R.#: [id number] Admission: 05/30/21 Attend Phys: Carlos Buckley MD Discharge: Date of : 39 Report #: [id number] @20:51 IV Therapy - Saline Lock 10cc (18 ga) Site: Antecubital-Left Response: UnchangedSucceeded @20:40 Surgical Mask on Patient Response: Unchanged @20:46 Oral Glucose - 24 Grams (gms) - Buccal Response: Improved Timeline 20:27,Call Received 20:27,Psap Call 20:30,Dispatched 20:30,En Route 20:33,On Scene 20:34,At Patient 20:37,BP: 105/70 M,PULSE: 95,RR: 16 R,SPO2: 91 Ox,ETCO2: ,B,PAIN: 0,GCS: 15, 20:40,Surgical Mask on Patient,Response: Unchanged 20:45,BP: 151/62 M,PULSE: 75,RR: 16 R,SPO2: 95 Ox,ETCO2: ,BG: ,PAIN: 0,GCS: 15, 20:45,Depart Scene 20:46,Oral Glucose - 24 Grams (gms) - Buccal,Response: Improved 20:48,BP: 149/66 M,PULSE: 74,RR: 16 R,SPO2: 95 Ox,ETCO2: ,BG: ,PAIN: 0,GCS: 15, 20:51,IV Therapy - Saline Lock 10cc 18 ga Site: Antecubital-Left,Response: UnchangedSucceeded, 20:52,12-Lead ECG,Response: UnchangedSucceeded, 20:52,BP: 105/50 M,PULSE: 75,RR: 16 R,SPO2: 100 Ox,ETCO2: ,B,PAIN: 0,GCS: 15, 20:58,At Destination 21:23,Call Closed Disclaimer v1.1 Copyright 2021 [employer] This EMS Care Summary contains data elements from the applicable legal record (which may be displayed differently). It is designed to provide pertinent information for the following purposes: continuity of care, clinical quality, and state data reporting. The complete legal record is available to ED staff and administrators of the receiving hospital in [employer]'s Patient Tracker. All data is provided "as is."
[2021-05-30 21:05] VITALS: BP 151/71
[2021-05-30 21:26] LABS: ABSOLUTE NEUTROPHILS 3.5 thou/uL (1.4-8.2); BASOPHILS 0.5 % (0.0-2.0); EOSINOPHILS 6.6 % (0.0-3.0); HEMATOCRIT 32.7 % (42.0-52.0); HEMOGLOBIN 11.2 gm/dL (14.0-18.0); LYMPHOCYTES 21.3 % (24.0-44.0); MCH 31.1 pg (26.0-34.0); MCHC 34.1 g/dL (28.0-37.0); MCV 91.3 fL (80.0-100.0); MONOCYTES 8.7 % (1.0-8.0); PLATELET COUNT 138 thou/uL (150-400); POLYS 62.9 % (36.0-66.0); RBC 3.59 mil/uL (4.50-6.00); RDW 15.7 % (10.5-14.5); WBC 5.6 thou/uL (4.0-11.0)
[2021-05-30 21:29] LABS: CREATININE 3.2 mg/dL (0.7-1.3); POTASSIUM 5.1 mmol/L (3.5-5.1)
[2021-05-30 21:41] LABS: ALBUMIN 3.8 g/dL (3.4-5.0); TOTAL BILIRUBIN 0.3 mg/dL (0.2-1.0); TOTAL PROTEIN 7.3 g/dL (6.4-8.2)
[2021-05-30 21:42] LABS: APTT 28.5 Seconds (24.5-32.8); INR 1.08; PROTIME 11.7 Seconds (10.5-12.1)
[2021-05-31 06:19] LABS: CALCIUM 8.7 mg/dL (8.5-10.1); CREATININE 2.9 mg/dL (0.7-1.3); POTASSIUM 4.7 mmol/L (3.5-5.1)
[2021-05-31 06:24] LABS: CHOLESTEROL 89 mg/dL (<200); HDL CHOLESTEROL 41 mg/dL (>40); LDL CHOLESTEROL 25 mg/dL (<100); SERUM ASSESSMENT Clear; TC:HDL 2.2 Ratio (Not establshd); TRIGLYCERIDE 117 mg/dL (<150); VLDL 23 mg/dL (<40)
--- NOTE | 2021-05-31 08:10 | EKG ---
[address] [address] ELECTROCARDIOGRAM REPORT Name: MAURICEANDERS Valladares II Room #: 170-9 ADM IN .R.#: [id number] Admission: 05/30/21 Attend Phys: Carlos Buckley MD Discharge: Date of : 39 Report #: [id number] [facility] ED Test Date: 2021-05-30 Test Time: 21:49:29 Pat Name: ANDERS RICHARDS Department: Room: 170 Gender: M Corporate Attorney: cory : 1940 Requested By: Anmol Whitehead Order Number: [id number] MD: Anthony Hernandez Measurements Intervals [place] Rate: 87 P: 62 PA: 198 QRS: 68 QRSD: 163 T: 6 QT: 401 QTc: 483 Interpretive Statements Sinus rhythm Right bundle branch block Compared to ECG 07/26/2016 12:04:55 Right bundle-branch block now present Incomplete right bundle-branch block no longer present Electronically Signed On 05-31-2021 8:10:23 JOINT SEALER by Anthony Hernandez [email or web address] <ELECTRONICALLY SIGNED> By: Anthony Hernandez MD, [facility] 05/31/21 0810 48 48 Anthony Hernandez MD, [facility] /EPI
--- NOTE | 2021-05-31 09:07 | 2DMMODE ---
[facility] [place] [address] 2 D/M-MODE ECHOCARDIOGRAM Name: ANDERS RICHARDS QUENTIN Room #: 170-9 ADM IN ..#: [id number] Admission: 05/30/21 Attend Phys: Carlos Buckley MD Discharge: Date of : 39 Report #: [id number] THIS REPORT FOR: cc: Carol Stern MD, Carrie W. MD Santiago, Patrick MD [facility] ~ APPROVED REPORT Study performed: 05/31/2021 08:11:54 EXAM: Comprehensive 2D, Doppler, and color-flow Echocardiogram Patient Location: ER Status: routine BSA: 2.15 HR: 74 bpm BP: 124/61 mmHg Rhythm: RBBB Other Information Study Quality: Adequate/fair Technically limited study due to body habitus. Indications TIA. Hx: CABG, PAF, PVD. Echo Enhancing Agent Comments: Images not ideal for adequate bubble study. 2D Dimensions RVDd: 33.89 mm IVSd: 11.75 (7-11mm) LVOT Diam: 20.77 (18-24mm) LVDd: 41.07 mm PWd: 12.31 (7-11mm) Ascending Ao: 35.22 (22-36mm) LVDs: 29.87 (25-40mm) Left Atrium: 30.75 (27-40mm) Aortic Root: 31.29 mm Volumes Left Atrial Volume (Systole) Single Plane 4CH: 44.95 mL Single Plane 2CH: 46.12 mL LA ESV Index: 23.00 mL/m2 [facility] [address] [place] [address] 2 D/M-MODE ECHOCARDIOGRAM Name: ANDERS RICHARDS Room #: 170-9 [facility] IN .R.#: [id number] Admission: 05/30/21 Attend Phys: Carlso Buckley MD Discharge: Date of : 39 Report #: [id number] Aortic Valve AoV Peak Jensen.: 1.99 m/s AO Peak Gr.: 12.90 mmHg LVOT Max P.32 mmHg AO Mean Gr.: 8.21 mmHg AO V2 Mean: 1.30 m/s LVOT Max V: 1.15 m/s AO V2 VTI: 37.66 cm AMELIA Vmax: 1.96 cm2 Mitral Valve E/A Ratio: 0.7 MV Decel. Time: 212.00 ms MV E Max Jensen.: 0.74 m/s MV A Jensen.: 1.04 m/s MV PHT: 61.48 ms IVRT: 76.12 ms Pulmonary Valve PV Peak Jensen.: 1.07 m/s PV Peak Gr.: 4.56 mmHg Tricuspid Valve RAP Estimate: 5.00 mmHg Left Ventricle The left ventricle is normal size. There is normal LV segmental wall motion. Mild concentric left ventricular hypertrophy. Left ventricular systolic function is normal. LVEF is 55-60%. Mild diastolic dysfunction is present (impaired relaxation pattern). Right Ventricle The right ventricle is normal size. The right ventricular systolic function is normal. Atria The left atrium size is normal. The right atrium size is normal. Aortic Valve Aortic valve moderately calcified but has adequate excursion. Mild aortic regurgitation. Mitral Valve The mitral valve is normal in structure. Trace mitral regurgitation. Tricuspid Valve [facility] [address] [place] [address] 2 D/M-MODE ECHOCARDIOGRAM Name: ANDERS RICHARDS Room #: [address] [place] [address] IN ..#: [id number] Admission: 05/30/21 Attend Phys: Carlos Buckley MD Discharge: Date of : 39 Report #: [id number] The tricuspid valve is normal in structure. Trace tricuspid regurgitation. Pulmonic Valve Pulmonic valve is not well visualized. Trace pulmonic regurgitation. Great Vessels The aortic root is normal in size. The ascending aorta is normal in size. IVC is normal in size and collapses >50% with inspiration. Pericardium There is no pericardial effusion. <Conclusion> Normal left ventricle size with mild concentric hypertrophy Ejection fraction 55% Normal right ventricle size/function Normal atrial size Aortic valve moderately calcified Mild aortic valve stenosis, mean gradient of 8 mmHg Mild aortic valve insufficiency Trace mitral valve insufficiency Trace tricuspid valve insufficiency No pericardial effusion Normal aortic root size. <ELECTRONICALLY SIGNED> By: Anthony Hernandez MD, FACC 05/31/21906 6 6 Anthony Hernandez MD, [facility] /INF
[2021-05-31 15:03] VITALS: BP 122/52
[2021-05-31 15:59] VITALS: BP 128/59
[2021-05-31 19:05] VITALS: BP 114/65
--- NOTE | 2021-05-31 19:50 | NUR ---
PT ADMITTED FROM ER FOR TIA AND WEAKNESS AT 1600PM, PT IS A&OX4, PT IS ROOM AIR , PT'S VS ARE STABLE AT DAY SHFIT , NEUROLOGY HAS SEEING PT , NEW ORDER RECEIVED,
[2021-06-01 01:06] LABS: GLYCOHEMOGLOBIN (HGB A1C) 6.4 % (4.8-5.6)
[2021-06-01 03:52] VITALS: BP 134/71
--- NOTE | 2021-06-01 08:29 | NUR ---
Pt. has slept well during the night.NIH score=0. Tolerating room air well and denies being short of breath. SR with BBB per tele. Voiding per urinal. Bed alarm on for safety. Making some progress towards care plan goals.
[2021-06-01 08:33] VITALS: BP 137/45
[2021-06-01 11:23] VITALS: BP 105/47
--- NOTE | 2021-06-01 13:22 | NUR ---
INITIAL ASSESSMENT: SW reviewed chart and spoke with nursing and attending physician. Pt was admitted from home due to possible TIA. Neuro and therapy consulted. Pt with hx A-Fib and DM. SW met with pt at bedside. Introduced role of SW. Pt is alert/orientated x 4. Pt reports he lives at home with his . Prior to admission, pt was independent with ADLs. Pt does have a walker to use as needed. Pt's home is one-level. No steps to navigate. No hx of HH services or post-acute placement. Pt's PCP is Dr. Carol Stern. Plan is for pt to discharge home when medically stable. Awaiting therapy evals. Pt declines HH referral at this time. SW explained that if HH services are needed after pt is discharged, to contact his PCP. Pt verbalized understanding. SW is following to assist as needed with discharge planning.
[2021-06-01] MEDS ORDERED: KLOR-CON M2020 MEQ PO (14:13)
[2021-06-01] MEDS ORDERED: FUROSEMIDE 40 M40 MG PO (14:19)
[2021-06-01] MEDS ORDERED: METFORMIN HCL500 M3 PO (14:20)
[2021-06-01] MEDS ORDERED: VENLAFAXINE HC150 MG PO (14:23)
[2021-06-01] MEDS ORDERED: [UNRECOGNIZED DRUG - OTHER] PO (14:24)
[2021-06-01 16:01] VITALS: BP 106/64
--- NOTE | 2021-06-01 18:32 | NUR ---
ASSUMED PATIENT CARE AT 0700, A/O X4. WILL NOP AFTER NIDNIGHT TO HAVE LAURA IN AM. PORGRESSING TOWARDS POC GOALS.
[2021-06-01 19:54] VITALS: BP 106/57
--- NOTE | 2021-06-02 04:18 | NUR ---
Pt. slept fair during the night. No change in neuro status. C/O stuffy nose when he woke up this am. Room thermostat adjusted down as it was set to 80 with door shut. Pt. stated it helped a lot and went back to sleep. Sat up on the bed to use urinal to void. Making some progress towards care plan goals.
[2021-06-02 04:39] VITALS: BP 140/63
[2021-06-02 06:09] VITALS: BP 116/52
[2021-06-02 09:35] VITALS: BP 117/59
[2021-06-02 10:12] LABS: ANA INTERPRETATION Negative (Negative)
[2021-06-02 11:19] VITALS: BP 112/63
[2021-06-02 11:50] LABS: CALCIUM 9.1 mg/dL (8.5-10.1); CREATININE 2.4 mg/dL (0.7-1.3); POTASSIUM 4.2 mmol/L (3.5-5.1)
--- NOTE | 2021-06-02 12:02 | TEE ---
[facility] [place] [address] TRANSESOPHAGEAL ECHOCARDIOGRAM Name: ANDERS RICHARDS Room #: 361-P [facility] IN M.R.#: [id number] Admission: 05/30/21 Attend Phys: Ruben Lehman MD Discharge: Date of : 38 Report #: [id number] THIS REPORT FOR: cc: Carol Stern MD, Carrie W. MD Santiago, Patrick MD [facility] ~ APPROVED REPORT Study performed: 06/02/2021 08:13:00 EXAM: Comprehensive 2D, Doppler, and color-flow Echocardiogram Patient Location: In-Patient Room #: 361 Status: routine BSA: 2.06 HR: 74 bpm BP: 124/60 mmHg Rhythm: NSR Other Information Study Quality: Good Indications CVA/TIA Echo Enhancing Agent Indication: Rule out Shunt Agent(s) / Amount(s) Used: Agitated Saline 7 cc Procedure After obtaining informed consent, patient underwent transesophageal echo in the [employer]. Type of Sedation : Conscious Sedation Sedation was administered by Nurse. Sedation start time: 812 Case end Time: 819 Sedation was achieved intravenously with: Versed (3mg) Fentanyl (50mcg) Transesophageal probe was inserted and advanced into esophagus without difficulty by Anthony Hernandez. Echo enhancement indication: R/O Septal defect. Echo enhancement agent administered: Agitated Saline The LAURA was performed without complications. Throughout the procedure, the blood pressure, pulse oximetry, cardiac [facility] [address] [place] [address] TRANSESOPHAGEAL ECHOCARDIOGRAM Name: ANDERS RICHARDS Room #: 361-[facility] IN .R.#: [id number] Admission: 05/30/21 Attend Phys: Ruben Lehman, Discharge: Date of : 38 Report #: [id number] rhythm, and rate were monitored. The patient tolerated the procedure without adverse effects. Recovery from conscious sedation was uneventful and vital signs were stable. Left Ventricle The left ventricle is normal size. There is normal LV segmental wall motion. There is normal left ventricular wall thickness. The left ventricular systolic function is normal. The left ventricular ejection fraction is within the normal range. LVEF is 55-60%. Right Ventricle The right ventricle is normal size. The right ventricular systolic function is normal. Atria The left atrium size is normal. Injection of contrast documented no interatrial shunt. The right atrium size is normal. Aortic Valve The aortic valve is normal in structure. Trace to mild aortic regurgitation. There is no aortic valvular stenosis. Mitral Valve The mitral valve is normal in structure. Trace mitral regurgitation. No evidence of mitral valve stenosis. Tricuspid Valve The tricuspid valve is normal in structure. Trace tricuspid regurgitation. Pulmonic Valve The pulmonary valve is normal in structure. There is no pulmonic valvular regurgitation. Great Vessels The aortic root is normal in size. IVC is normal in size and collapses >50% with inspiration. Pericardium There is no pericardial effusion. <Conclusion> Consent was obtained Timeout performed After appropriate sedation, esophageal probe was advanced without [facility] [address] [address] TRANSESOPHAGEAL ECHOCARDIOGRAM Name: ANDERS RICHARDS Room #: 361-P [facility] IN .R.#: [id number] Admission: 05/30/21 Attend Phys: Ruben Lehman, Discharge: Date of : 38 Report #: [id number] difficulty Left atrial appendage, moderate size, no obvious mass or clot detected Normal atrial size Normal left ventricle size/wall thickness ejection fraction 60% Normal right ventricle size/function Prominent trabeculation at the right ventricular apex Normal aortic/mitral valve structure Trace mitral/aortic valve insufficiency No tricuspid valve insufficiency No pericardial effusion Normal aortic root size Minimal calcification throughout the aorta No evidence of ASD/VSD by color flow/bubble study Patient tolerated the procedure well <ELECTRONICALLY SIGNED> By: Anthony Hernandez MD, FACC 06/02/21 120 00 00 Anthony Hernandez MD, FACC /INF
[2021-06-02] MEDS ORDERED: FELODIPINE 5 MG5 M1 PO (13:24)
--- NOTE | 2021-06-02 15:52 | NUR ---
DISCHARGE NOTE: SW reviewed chart and spoke with nursing and attending physician. Pt is medically stable for discharge home today. SW met with pt and at bedside. Discussed discharge plan. SW offered to coordinate HH services. Pt declines and states he will contact his PCP (Dr. Stern) if he feels that he needs HH after discharge. Pt's family to provide transportation home. No SW needs identified at this time. SW is available to assist should needs arise.
[2021-06-02 16:11] VITALS: BP 112/63
--- NOTE | 2021-06-02 17:23 | NUR ---
DISCHARGE ORDER: PT ALERT AND ORIENTED X4. HAD A LAURA TODAY, TOLERATED IT WELL. SW OFFERRED HH TO PT, BUT HE REFUSED. HEART MONITOR PLACED BY CARDIOLOGY. DR. WEBER HERE TO SEE PT, STATED PT CAN DISCHARGE NOW.. IV AND TELE TAKEN OUT. ALL BELINGINGS WITH PT. PT HERE TO [employer] PT. TAKEN DOWN VIA WHEELCHAIR.
[2021-06-02 20:06] LABS: SYPHILIS AB Non Reactive (Non Reactive)
--- NOTE | 2021-06-08 10:11 | HC ---
[facility] [place] [address] CONSULTATION Name: ANDERS RICHARDS Room #: 361-P [facility] IN M.R.#: [id number] Admission: 05/30/21 Attend Phys: Ruben Lehman MD Discharge: 06/02/21 Date of : 38 Report #: [id number] THIS REPORT FOR: cc: Carol Stern MD, Carrie W. MD Khosla, Parveen K. MD ~ DATE OF SERVICE: 05/31/2021 HISTORY OF PRESENT ILLNESS: This is an 80-year-old male patient who was evaluated by me for a TIA. The patient had an episode of speech difficulty and right-sided weakness. He was evaluated by Teleneurology and then a routine consult was sent to us for a routine workup. The patient believes his symptoms are gone. In fact, he thinks his symptoms were because of low blood sugar, but his blood sugar was only about 68, but he said it also went lower than that, but difficult to tell because he basically is taking only metformin according to him. His workup was done in the Emergency Room by Teleneurology. I reviewed those. It looks like he had a CT angio, CT, and MRI. He has some disease in the carotid, but he has really no acute strokes on the MRI of the brain. He had carotid Dopplers in the past and they have shown some disease, which looked similar to what he has here. He was on aspirin. He was not on any Plavix. He was not complaining of any , GI, cardiac, respiratory, musculoskeletal, constitutional, dermatological, hematological, psychiatric, throat symptom associated with present symptomatology. He does apparently have a history of sleep apnea. REVIEW OF SYSTEMS: He said he did not have any stroke in the past. He does have a history of cardiac problems. 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 He is a diabetic. He was not complaining of any new eye, ENT, cardiac, respiratory, GI, , musculoskeletal, constitutional, dermatological, hematological, psychiatric, throat symptom associated with present symptomatology. PAST MEDICAL HISTORY: Positive for cardiac problem. One of the cardiac problems summarized in the note is AFib that needs to be clarified. FAMILY HISTORY: Unremarkable. SOCIAL HISTORY: The patient does not smoke. PHYSICAL EXAMINATION: The patient's examination indicate the patient is alert, responsive, able to follow simple and complex command. His speech looks intact. Cranial nerve examination 2-12 is unremarkable. Neuromuscular examination appears symmetrical for strength, sensation, reflexes, and tone. His position sense was intact. He has no cerebellar ataxia. There is no meningeal sign. He is a well-built individual, who does not have any dysmorphic features of eyes, ears, and face. Hearing and vision looks adequate. His pulses were somewhat [facility] [address] [place] [address] CONSULTATION Name: RICHARDSANDERS Room #: 361-P [facility] IN [facility].#: [id number] Admission: 05/30/21 Attend Phys: Ruben Lehman MD Discharge: 06/02/21 Date of : 38 Report #: [id number] difficult to feel. He has no edema, cyanosis, or jaundice. VITAL SIGNS: Blood pressure is 158/59, respirations 16, pulse is 65, temperature is 97.5. LABORATORY DATA: His platelet count is down a little bit at 138. On admission, his creatinine was 3.2 and GFR was 19. He got some contrast. Does not look like it affected his kidneys so far because his GFR now is 21. IMPRESSION: 1. Transient ischemic attack. 2. Mild carotid disease. 3. Slightly decreased platelet. 4. He appeared to have gotten contrast in the ER and his creatinine is high. I called the hospitalist and discussed that aspect with him to see if he wants to address that. 5. Question of atrial fibrillation in the history. That needs to be addressed. If he has any atrial fibrillation, then anticoagulation needs to be considered. I have put a Cardiology consult because it is their patient and they can look at that question further. As far as neurological situation is concerned, I do not think we have to add anything. Presently, I think we should continue aspirin and Plavix. However, we will see if Cardiology has any record of him having atrial fibrillation in the past and that might change the treatment and I ordered a few more blood tests that can be checked. Otherwise, nothing specific to add and we will sign off and please call if there is any question. <ELECTRONICALLY SIGNED> By: Jeff Adame MD 06/08/21 1011 [id number] Jeff Adame MD /nt
== END 2021-06-02 17:27 | disposition home or self-care (01) | DRG 69 ==
LOC: ER 21:04 → 3W 22:56 → EROBS 22:56 → 3W 05-31 15:36
PROVIDERS: Emergency Medicine; Nurse Practitioner Adult Health; Nurse Practitioner Family; Psychiatry & Neurology Neuromuscular Medicine; ADMIT Internal Medicine; ATTEND Internal Medicine
PROC: B24BZZ4 Ultrasonography of Heart with Aorta, Transesophageal (ICD-10-PCS; principal; 2021-05-30)
DX: G45.9 Transient cerebral ischemic attack, unspecified (principal); N17.0 Acute kidney failure with tubular necrosis; R27.0 Ataxia, unspecified; I48.0 Paroxysmal atrial fibrillation; E86.0 Dehydration; I10 Essential (primary) hypertension; Z88.8 Allergy status to other drugs, medicaments and biological substances; Z20.822 Contact with and (suspected) exposure to COVID-19; I12.9 Hypertensive chronic kidney disease with stage 1 through stage 4 chronic kidney disease, or unspecified chronic kidney disease; E11.22 Type 2 diabetes mellitus with diabetic chronic kidney disease; N18.9 Chronic kidney disease, unspecified; E78.5 Hyperlipidemia, unspecified; I35.2 Nonrheumatic aortic (valve) stenosis with insufficiency; Z95.1 Presence of aortocoronary bypass graft; I25.10 Atherosclerotic heart disease of native coronary artery without angina pectoris; E78.00 Pure hypercholesterolemia, unspecified; E11.649 Type 2 diabetes mellitus with hypoglycemia without coma; Z79.4 Long term (current) use of insulin
CPT/HCPCS: 10879